=== PATIENT | male | born 1955 | race Caucasian/White ===

== ENCOUNTER 2017-07-21 07:04 | Day surgery (SDC) | payer BC ==
[~2017-07-21] VITALS: Ht 185.4 cm; Wt 97.7 kg
[2017-07-21] MEDS ORDERED: SODIUM CHLORIDE 0.9% 1,000 ML IV SCH ×2 (07:10→07:30)
[2017-07-21 07:27] VITALS: BP 160/100
[2017-07-21] MEDS ORDERED: Magnesium PO (07:40)
[2017-07-21] MEDS ORDERED: METO25TA35 PO (07:40)
[2017-07-21] MEDS ORDERED: ASPI-621 PO (07:40)
[2017-07-21] MEDS ORDERED: LISI1TAB7 PO (07:40)
[2017-07-21] MEDS ORDERED: MIDAZOLAM 1 MG/ML, 5ML ONE (09:45)
[2017-07-21] MEDS ORDERED: FENTANYL PF 100 MCG/2ML ONE (09:45)
[2017-07-21] MEDS ORDERED: LIDOCAINE 2%, 20ML ONE (10:02)
[2017-07-21] MEDS ORDERED: HEPARIN 1,000 UNITS/ML, 10ML ONE (10:13)
[2017-07-21] MEDS ORDERED: PROTAMINE SULFATE 10 MG/ML, 5ML ONE (10:13)
[2017-07-21] MEDS ORDERED: ISOPROTERENOL 0.2MG/ML, 5ML ONE (10:40)
[2017-07-21] MEDS ORDERED: ACETAMINOPHEN 325 MG TABLET PO PRN ×2 (11:30→12:00)
[2017-07-21] MEDS ORDERED: morphine SULFATE 10 MG/ML, 1ML IV PRN (12:00)
[2017-07-21] MEDS ORDERED: MIDAZOLAM 1 MG/ML, 2ML IV PRN (12:00)
[2017-07-21] MEDS ORDERED: PROMETHAZINE 12.5 MG SUPP PR PRN (12:00)
[2017-07-21] MEDS ORDERED: LORazepam 2 MG/ML, 1ML IVPush PRN (12:00)
[2017-07-21] MEDS ORDERED: FENTANYL PF 100 MCG/2ML IV PRN (12:00)
[2017-07-21] MEDS ORDERED: EPHEDRINE 50 MG/ML, 1ML IVPush PRN (12:00)
[2017-07-21] MEDS ORDERED: ONDANSETRON 2MG/ML, 2ML IVPush PRN (12:00)
[2017-07-21] MEDS ORDERED: PROMETHAZINE 25 MG/ML, 1ML IV PRN (12:00)
[2017-07-21] MEDS ORDERED: OXYcodone 5 MG/5 ML ORAL.SOL UDC PO PRN (12:00)
[2017-07-21] MEDS ORDERED: hydrALAzine 20 MG/ML, 1ML IV PRN (12:00)
[2017-07-21] MEDS ORDERED: PROPOFOL 10 MG/ML, 20ML ONE (15:48)
[2017-07-21] MEDS ORDERED: ONDANSETRON 2MG/ML, 2ML ONE (15:48)
[2017-07-21] MEDS ORDERED: SUCCINYLCHOLINE 20 MG/ML, 10ML ONE (15:48)
[2017-07-21] MEDS ORDERED: DEXAMETHASONE 4 MG/ML, 1ML ONE (15:48)
[2017-07-21] MEDS ORDERED: METOPROLOL TARTRATE 25 MG TABLET PO SCH (21:00)
[2017-07-22] MEDS ORDERED: TEMPLATE NON-FORMULARY MED. (Lisinopril/Hydrochlorothiazide** (Lisinopril-Hctz 20-25 Mg Ta PO SCH (09:00)
[2017-07-22] MEDS ORDERED: ASPIRIN 81 MG TABLET EC PO SCH (09:00)
[2017-07-22] MEDS ORDERED: MAGNESIUM 250 MG PO SCH (09:00)
== END 2017-07-21 14:35 ==
LOC: CACL 07:04
PROVIDERS: ATTEND Internal Medicine Cardiovascular Disease
DX: I48.92 Unspecified atrial flutter (principal); I10 Essential (primary) hypertension; Z72.89 Other problems related to lifestyle
CPT/HCPCS: 93312; 93321; 93325; 93613; 93621; 93653; C1730; C1731; C1732; C1894; J0330; J1100; J1644; J2250; J2405; J2704; J3010; J3490; J2720